=== PATIENT | male | born 1960 | race Hispanic/Latino ===

== ENCOUNTER 2020-03-21 02:15 | Emergency (ER) | payer BC, SELFPAY ==
[2020-03-21 02:57] LABS: #Eosinphils 0.4 thou/uL (0.0-0.7); #Lymphocytes 3.4 thou/uL (1.20-3.40); #Monocytes 0.6 thou/uL (0.11-0.59); %Basophils 0.5 % (0.0-1.0); %Eosinophils 3.9 % (0.0-10.0); %Lymphocytes 32.4 % (21.0-51.0); %Monocytes 5.9 % (0.0-10.0); %Neutrophils 57.3 % (42.0-75.0); Mean Corpuscular HGB CONC 34.5 g/dL (32.0-36.0); Mean Corpuscular Volume 92.8 fL (78.0-98.0); Mean Platelet Volume 7.7 fL (7.4-10.4); Platelet Count 250 thou/uL (130-400); RBC Distribution Width 12.2 % (11.5-14.5); Red Blood Cell (RBC) Count 4.37 mill/uL (4.70-6.10); White Blood Cell (WBC) Count 10.5 thou/uL (4.8-10.8)
[2020-03-21 03:18] LABS: ALT (SGPT) 22 U/L (8-55); AST (SGOT) 23 U/L (5-34); Albumin 4.2 g/dL (3.5-5.0); Alkaline Phosphatase 53 U/L (40-110); Anion Gap 14 mmol/L (10-20); BUN (Urea Nitrogen) 10 mg/dL (8.4-25.7); Bilirubin, Total 0.4 mg/dL (0.2-1.2); Calc. Creatinine Clearance 0 mL/min (70-130); Calcium 9.1 mg/dL (7.8-10.44); Carbon Dioxide 27 mmol/L (22-29); Chloride 101 mmol/L (98-107); Estimated GFR-MDRD 70; Globulin 3.7 g/dL (2.4-3.5); Glucose 135 mg/dL (70-105); Lipase 36 U/L (8-78); Potassium 3.5 mmol/L (3.5-5.1); Protein, Total 7.9 g/dL (6.0-8.3); Sodium 138 mmol/L (136-145)
[2020-03-21] MEDS ORDERED: Lidocaine Viscous Sol 2% 15 ml UD Cup ONE (03:28)
[2020-03-21] MEDS ORDERED: Mag-Al 1200 mg/1200 mg/30 ML UDCUP ONE (03:28)
[2020-03-21] MEDS ORDERED: Morphine 4 MG/ML VIAL ONE (03:59)
--- NOTE | 2020-03-21 07:48 | RAD ---
RADIOGRAPH CHEST 1 VIEW: DATE: 03/21/2020 HISTORY: 59-year-old male with chest pain FINDINGS: There are no airspace densities, pulmonary edema, pneumothorax, or cardiomegaly. The lateral costophr enic angles are sharp. IMPRESSION: No acute cardiopulmonary findings.
== END 2020-03-21 04:15 | disposition home or self-care (01) ==
LOC: ERS 02:15
DX: R10.11 Right upper quadrant pain (principal); R10.13 Epigastric pain; E78.5 Hyperlipidemia, unspecified; I10 Essential (primary) hypertension; Z87.891 Personal history of nicotine dependence
CPT/HCPCS: 36415; 71045; 80053; 83690; 84484; 85025; 93005; 96374; J2270

== ENCOUNTER 2020-03-21 13:26 | Outpatient (CLI) | payer OTHER ==
--- NOTE | 2020-03-21 14:43 | ULT ---
GALLBLADDER ULTRASOUND: HISTORY: Right upper quadrant pain. FINDINGS: The pancreas and common bile duct are not visualized due to overlying bowel gas. The liver demonstrates increased echogenicity consistent with fatty infiltration without focal mass o r abnormal biliary ductal dilatation. The common duct measures 6 mm in diameter in the visualized po rtions. The right kidney is normal. No free fluid is seen in the Morison's pouch. There is sludge in the distended gallbladder without shadowing gallstones. The gallbladder measures 12 mm in length. The gallbladder wall measures about 4 mm in thickness and there is a suggestion of trace pericholecystic fluid. A negative Olvera's sign was elicited during the exam. IMPRESSION: 1. Fatty liver. 2. Cholelithiasis. 3. Distended gallbladder with gallbladder sludge and trace pericholecystic fluid. If there is eloise rn for acute acalculus cholecystitis, further evaluation with HIDA scan should be performed. CODE T POS: AH
== END 2020-03-21 13:27 | disposition home or self-care (01) ==
LOC: ULT 13:26
PROVIDERS: ATTEND Family Medicine
DX: R10.11 Right upper quadrant pain (principal); K80.20 Calculus of gallbladder without cholecystitis without obstruction; K76.0 Fatty (change of) liver, not elsewhere classified; K82.8 Other specified diseases of gallbladder
CPT/HCPCS: 76705